=== PATIENT | male | born 1975 | race Two or more races ===

== ENCOUNTER 2020-08-28 05:36 | Day surgery (SDC) | payer OTHER ==
[~2020-08-28 05:36] MED LIST: IRON PO; VITAMIN B12 PO
[2020-08-28] MEDS ORDERED: PERCOCET 5-3251 EACH PO (09:03)
== END 2020-08-28 11:30 | disposition home or self-care (01) ==
LOC: CIR.AMB 05:36
PROVIDERS: ATTEND Surgery
DX: C20 Malignant neoplasm of rectum (principal); Z20.822 Contact with and (suspected) exposure to COVID-19
CPT/HCPCS: 36561; C1751

== ENCOUNTER 2021-01-01 09:36 | Day surgery (SDC) | payer OTHER ==
[~2021-01-01 09:36] MED LIST changes: +PERCOCET 5-3251 EACH PO
== END 2021-01-01 14:35 | disposition home or self-care (01) ==
LOC: AMB-ENDOS 09:36
PROVIDERS: ATTEND Surgery
DX: K62.89 Other specified diseases of anus and rectum (principal); Z20.822 Contact with and (suspected) exposure to COVID-19

== ENCOUNTER 2021-02-22 11:00 | Inpatient (IN) | payer OTHER ==
[2021-02-27] MEDS ORDERED: PANTOPRAZOLE SO20 MG (11:55)
[2021-02-27] MEDS ORDERED: DOCUSATE CALCI240 MG (11:55)
[2021-02-27] MEDS ORDERED: FAMOTIDINE20 MG (11:55)
[2021-02-27] MEDS ORDERED: VITAMIN B-121000 MC4 (11:56)
[2021-02-27] MEDS ORDERED: IRON236 MG (11:56)
[2021-03-04] MEDS ORDERED: OXYC1TAB9 PO (14:08)
[2021-03-04] MEDS ORDERED: HYOSCYAMINE0.125 M1 SL (14:08)
[2021-03-04] MEDS ORDERED: INTESTINEX680 M1 PO (14:11)
== END 2021-03-04 16:39 | disposition home or self-care (01) | DRG 330 ==
LOC: O/R 02-27 05:53 → SURH 02-27 07:00
PROVIDERS: ADMIT Surgery; ATTEND Surgery
PROC: 0DTN4ZZ Resection of Sigmoid Colon, Percutaneous Endoscopic Approach (ICD-10-PCS; 2021-02-27)
PROC: 0D1B4Z4 Bypass Ileum to Cutaneous, Percutaneous Endoscopic Approach (ICD-10-PCS; 2021-02-27)
PROC: 07BC4ZX Excision of Pelvis Lymphatic, Percutaneous Endoscopic Approach, Diagnostic (ICD-10-PCS; 2021-02-27)
PROC: 3E0F7SF Introduction of Other Gas into Respiratory Tract, Via Natural or Artificial Opening (ICD-10-PCS; 2021-02-27)
PROC: 0DTP4ZZ Resection of Rectum, Percutaneous Endoscopic Approach (ICD-10-PCS; principal; 2021-02-27 07:00)
DX: C20 Malignant neoplasm of rectum (principal); K62.5 Hemorrhage of anus and rectum; D50.0 Iron deficiency anemia secondary to blood loss (chronic); R59.0 Localized enlarged lymph nodes

== ENCOUNTER 2021-07-04 09:15 | Inpatient (IN) | payer OTHER ==
[~2021-07-04] VITALS: Ht 172.7 cm; Wt 77.1 kg
[~2021-07-04 09:15] MED LIST changes: +DOCUSATE CALCI240 MG; +FAMOTIDINE20 MG; +HYOSCYAMINE0.125 M1 SL; +INTESTINEX680 M1 PO; +IRON236 MG; +OXYC1TAB9 PO; +PANTOPRAZOLE SO20 MG; +VITAMIN B-121000 MC4
[2021-07-06] MEDS ORDERED: FAMOTIDINE20 MG (16:25)
[2021-07-06] MEDS ORDERED: INTESTINEX680 M1 (16:25)
[2021-07-06] MEDS ORDERED: PANTOPRAZOLE SO20 MG (16:25)
[2021-07-09] MEDS ORDERED: IMODIUM A-D2 MG PO (07:28)
[2021-07-09] MEDS ORDERED: PERCOCET 5-3251 EACH PO (07:28)
== END 2021-07-09 10:30 | disposition home or self-care (01) | DRG 331 ==
LOC: O/R 07-06 06:00 → SURH 07-06 06:00
PROVIDERS: ADMIT Surgery; ATTEND Surgery
PROC: 0DQB4ZZ Repair Ileum, Percutaneous Endoscopic Approach (ICD-10-PCS; principal; 2021-07-06 19:30)
DX: Z43.2 Encounter for attention to ileostomy (principal); Z20.822 Contact with and (suspected) exposure to COVID-19

== ENCOUNTER 2021-11-23 06:00 | Day surgery (SDC) | payer OTHER ==
[~2021-11-23 06:00] MED LIST changes: +IMODIUM A-D2 MG PO; +INTESTINEX680 M1
== END 2021-11-23 11:50 | disposition home or self-care (01) ==
LOC: AMB-ENDOS 06:00
PROVIDERS: ATTEND Surgery
DX: D12.0 Benign neoplasm of cecum (principal); Z20.822 Contact with and (suspected) exposure to COVID-19